=== PATIENT | male | born 1945 | race Caucasian/White ===

== ENCOUNTER 2017-08-20 08:48 | Inpatient (IN) | payer MEDICARE, OTHER ==
[2017-08-14 16:02] LABS: BASOPHILS # (AUTO) 0.1 X10'3 (0-0.2); BASOPHILS % (AUTO) 1.8 % (0-1); EOSINOPHILS # (AUTO) 0.1 X10'3 (0-0.9); EOSINOPHILS % (AUTO) 1.9 % (0-6); LYMPHOCYTES # (AUTO) 1.5 X10'3 (1.1-4.8); LYMPHOCYTES % (AUTO) 34.7 % (21-51); MEAN CORPUSCULAR HEMOGLOBIN 30.9 PG (27.0-31.0); MEAN CORPUSCULAR HGB CONC 34.6 % (33.0-36.5); MEAN CORPUSCULAR VOLUME 89.4 FL (78-98); MEAN PLATELET VOLUME 8.4 FL (7.4-10.4); MONOCYTES # (AUTO) 0.4 X10'3 (0-0.9); MONOCYTES % (AUTO) 9.7 % (2-12); NEUTROPHILS # (AUTO) 2.3 X10'3 (1.8-7.7); NEUTROPHILS % (AUTO) 51.9 % (42-75); PRE OP HEMATOCRIT 37.9 % (42.0-52.0); PRE OP HEMOGLOBIN 13.1 g/dL (14.0-17.9); PRE OP PLATELET COUNT 220 X10'3 (140-440); RED BLOOD COUNT 4.24 X10'6 (4.70-6.10); RED CELL DISTRIBUTION WIDTH 12.7 % (11.5-14.5)
[2017-08-14 16:14] LABS: ALBUMIN 3.5 G/DL (3.4-5.0); ALBUMIN/GLOBULIN RATIO 0.9 (1.1-1.5); ALKALINE PHOSPHATASE 119 IU/L (46-116); BLOOD UREA NITROGEN 16 MG/DL (7-18); BUN/CREATININE RATIO 14.4 (5.4-32.0); CHLORIDE 108 MMOL/L (99-107); CREATININE 1.11 MG/DL (0.60-1.10); PRE OP ALT 32 U/L (30-65); PRE OP ANION GAP 9 (8-16); PRE OP AST 23 U/L (10-37); PRE OP BILIRUB, TOTAL 0.5 MG/DL (0.0-1.0); PRE OP GLUCOSE 115 MG/DL (70-104); PRE OP SODIUM 144 MMOL/L (135-145); TOTAL CARBON DIOXIDE 26.8 MMOL/L (24-32); TOTAL PROTEIN 7.3 G/DL (6.4-8.2); eGFR 65 ML/MIN
[2017-08-20] VITALS (17 sets, daily range): BP systolic 118–143; BP diastolic 67–89
[~2017-08-20] VITALS: Ht 182.9 cm; Wt 109.5 kg
[~2017-08-20 08:48] MED LIST: ATOR10TA70 PO; DOCUMENT DATE & TIME OF BETA-BLOCKER PO ONE; METO50TA7 PO; OMEP20CA10 PO; PSYL1PAC11 PO; UBID100C16 PO; VERA240T PO; ceFAZolin inj. 2,000 MG in dextrose 5%-water 100 ML IV ONE; ringers solution, lacted 1,000 ML IV SCH; scopolamine 1.5mg patch.TD72 TD ONE
[2017-08-20] MEDS ORDERED: LIDOcaine 1% (10mg/ml) 2ml vial ONE (09:18)
[2017-08-20] MEDS ORDERED: famotidine 20mg tablet PO ONE (09:18)
[2017-08-20] MEDS: vancomycin inj 1,500 MG in normal saline 300ml IV soln IV ONE ×2 (09:37→11:53)
[2017-08-20] MEDS ORDERED: ketorolac trometh. 30mg/ml inj. ONE (12:38)
[2017-08-20] MEDS ORDERED: vancomycin 1,000mg inj ONE (12:38)
[2017-08-20] MEDS ORDERED: ROPIVAcaine 0.5% (5mg/ml) 30ml vial ONE ×2 (12:38→14:25)
[2017-08-20] MEDS ORDERED: tetracaine 1% (10mg/ml) pres. free inj. ONE (13:36)
[2017-08-20] MEDS ORDERED: morphine /PF 1mg/ml 10ml inj. ONE (13:43)
[2017-08-20] MEDS ORDERED: midazolam 2 mg/2 ml injection ONE ×2 (13:45→13:58)
[2017-08-20] MEDS ORDERED: fentaNYL/PF 50MCG/1 ML 2ML syringe ONE ×2 (13:45→14:47)
[2017-08-20] MEDS ORDERED: tranexamic acid inj. 1,000 MG in normal saline 100ml IV soln 100 ML IV ONE ×4 (13:50)
[2017-08-20] MEDS ORDERED: LIDOcaine 1%/PF (10mg/ml) 5ml vial ONE (14:02)
[2017-08-20] MEDS ORDERED: propofol inj 20 ML IV ONE ×3 (14:02→15:31)
[2017-08-20] MEDS ORDERED: cloNIDine hcl/PF 100mcg/ml inj ONE (14:30)
[2017-08-20] MEDS ORDERED: naloxone 2mg/2ml inj 2 MG in normal saline 500ml IV soln 500 ML IV PRN (15:21)
[2017-08-20] MEDS ORDERED: ringers solution, lacted 1,000 ML IV SCH (15:21)
[2017-08-20] MEDS ORDERED: diphenhydrAMINE 50 mg/ml inj IV PRN (15:25)
[2017-08-20] MEDS ORDERED: HYDROmorphone inj. 0.5 MG/0.5 ML DISP.SYRIN IV PRN ×4 (15:25→17:05)
[2017-08-20] MEDS ORDERED: ondansetron/PF 4mg/2ml inj IV PRN ×3 (15:25→17:05)
[2017-08-20] MEDS ORDERED: morphine 4 MG/ML inj SYRINge IV PRN (15:25)
[2017-08-20] MEDS ORDERED: glycopyrrolate 0.2mg/ml inj ONE (16:10)
[2017-08-20] MEDS ORDERED: dexamethasone 4mg/ml inj ONE (16:59)
[2017-08-20] MEDS ORDERED: acetaminophen 325mg tablet PO PRN (17:05)
[2017-08-20] MEDS ORDERED: bisacodyl 10mg suppository rectal RC PRN (17:05)
[2017-08-20] MEDS ORDERED: magnesium hydroxide 30ml (MOM) UD suspension PO PRN (17:05)
[2017-08-20] MEDS ORDERED: diphenhydrAMINE 25mg capsule PO PRN ×2 (17:05)
[2017-08-20] MEDS ORDERED: diphenhydrAMINE 50 mg/ml inj ONE (17:09)
[2017-08-20] MEDS: celeCOXIB 100mg capsule PO SCH (20:00)
[2017-08-20] MEDS ORDERED: vancomycin/NS 1 GM ADD-VANTAGE 250 ML IV SCH (20:00)
[2017-08-20] MEDS ORDERED: tranexamic acid inj. 1,110 MG in normal saline 100ml IV soln 100 ML IV ONE (20:00)
[2017-08-20] MEDS: gabapentin 300mg capsule PO SCH (20:38)
[2017-08-20] MEDS: sennosides 8.6mg tablet PO SCH (20:38)
[2017-08-20] MEDS: acetaminophen 325mg tablet PO SCH (20:38)
[2017-08-20] MEDS: metoprolol succinate 25mg (24-HOUR) SR. Tablet PO SCH (20:39)
[2017-08-20] MEDS: ketorolac tromethamine 15mg/ml inj. IV SCH (20:40)
[2017-08-20] MEDS: potassium cl 20mEq in 1/2 NS 1,000 ML IV SCH (20:40)
[2017-08-21] MEDS: ceFAZolin 1GM/D5W- ADD-VANTAGE 50 ML IV SCH ×2 (00:08→07:29)
[2017-08-21] MEDS: acetaminophen 325mg tablet PO SCH ×4 (01:59→21:04)
[2017-08-21] MEDS: ketorolac tromethamine 15mg/ml inj. IV SCH ×4 (01:59→21:05)
[2017-08-21 02:00] VITALS: BP 129/69
[2017-08-21] MEDS: oxyCODONE IR 5mg (immed. release) tablet PO PRN ×2 (04:59→19:48)
[2017-08-21 05:24] LABS: BASOPHILS % (AUTO) 0.1 % (0-1); EOSINOPHILS % (AUTO) 0.1 % (0-6); HEMATOCRIT 32.3 % (42.0-52.0); HEMOGLOBIN 11.1 g/dl (14.0-17.9); LYMPHOCYTES # (AUTO) 0.6 X10'3 (1.1-4.8); LYMPHOCYTES % (AUTO) 9.4 % (21-51); MEAN CORPUSCULAR HEMOGLOBIN 30.5 PG (27.0-31.0); MEAN CORPUSCULAR HGB CONC 34.2 % (33.0-36.5); MEAN CORPUSCULAR VOLUME 89.1 FL (78-98); MEAN PLATELET VOLUME 9.1 FL (7.4-10.4); MONOCYTES # (AUTO) 0.5 X10'3 (0-0.9); MONOCYTES % (AUTO) 7.7 % (2-12); NEUTROPHILS # (AUTO) 5.5 X10'3 (1.8-7.7); NEUTROPHILS % (AUTO) 82.7 % (42-75); PLATELET COUNT 169 X10'3 (140-440); RED BLOOD COUNT 3.63 X10'6 (4.70-6.10); RED CELL DISTRIBUTION WIDTH 11.8 % (11.5-14.5); WHITE BLOOD COUNT 6.6 X10'3 (4.5-11.0)
[2017-08-21] MEDS: potassium cl 20mEq in 1/2 NS 1,000 ML IV SCH ×2 (05:49→08:46)
[2017-08-21 06:20] LABS: ANION GAP 8 (8-16); CHLORIDE 108 MMOL/L (99-107); POTASSIUM 4.5 MMOL/L (3.5-5.1); SODIUM 140 MMOL/L (135-145); TOTAL CARBON DIOXIDE 24.5 MMOL/L (24-32)
[2017-08-21 06:37] VITALS: BP 103/59
[2017-08-21] MEDS: verapamil SR 120mg (sust. release) tab PO SCH (07:22)
[2017-08-21] MEDS: gabapentin 300mg capsule PO SCH ×3 (07:29→21:05)
[2017-08-21] MEDS: atorvastatin 10mg tablet PO SCH (07:29)
[2017-08-21] MEDS: celeCOXIB 100mg capsule PO SCH ×2 (07:30→20:00)
[2017-08-21] MEDS: pantoprazole 40mg Tablet.DR PO SCH (07:31)
[2017-08-21] MEDS: aspirin 325mg tablet PO SCH (07:42)
[2017-08-21] MEDS ORDERED: non-formulary drug (Ubidecarenone (Coq-10) 100 MG) PO SCH (08:00)
[2017-08-21 10:00] VITALS: BP 110/66
[2017-08-21] MEDS: Protein Shake (high protein) 240ml (8oz) cup PO SCH ×2 (13:00→21:03)
[2017-08-21 14:00] VITALS: BP 112/63
[2017-08-21 18:00] VITALS: BP 119/60
[2017-08-21] MEDS: sennosides 8.6mg tablet PO SCH ×2 (21:00→21:04)
[2017-08-21] MEDS: metoprolol succinate 25mg (24-HOUR) SR. Tablet PO SCH (21:04)
[2017-08-21 23:00] VITALS: BP 107/64
[2017-08-22] MEDS: acetaminophen 325mg tablet PO SCH ×2 (02:12→07:37)
[2017-08-22] MEDS: ketorolac tromethamine 15mg/ml inj. IV SCH (02:12)
[2017-08-22 05:00] VITALS: BP 108/60
[2017-08-22] MEDS: oxyCODONE IR 5mg (immed. release) tablet PO PRN ×2 (05:10→12:02)
[2017-08-22 05:33] LABS: BASOPHILS % (AUTO) 0.7 % (0-1); EOSINOPHILS # (AUTO) 0.3 X10'3 (0-0.9); EOSINOPHILS % (AUTO) 6.5 % (0-6); HEMATOCRIT 28.6 % (42.0-52.0); HEMOGLOBIN 9.9 g/dl (14.0-17.9); LYMPHOCYTES # (AUTO) 1.3 X10'3 (1.1-4.8); LYMPHOCYTES % (AUTO) 26.6 % (21-51); MEAN CORPUSCULAR HEMOGLOBIN 30.7 PG (27.0-31.0); MEAN CORPUSCULAR HGB CONC 34.4 % (33.0-36.5); MEAN CORPUSCULAR VOLUME 89.4 FL (78-98); MEAN PLATELET VOLUME 8.5 FL (7.4-10.4); MONOCYTES # (AUTO) 0.5 X10'3 (0-0.9); MONOCYTES % (AUTO) 11.2 % (2-12); NEUTROPHILS # (AUTO) 2.6 X10'3 (1.8-7.7); PLATELET COUNT 154 X10'3 (140-440); RED CELL DISTRIBUTION WIDTH 12.4 % (11.5-14.5); WHITE BLOOD COUNT 4.8 X10'3 (4.5-11.0)
[2017-08-22] MEDS: verapamil SR 120mg (sust. release) tab PO SCH (07:33)
[2017-08-22] MEDS: gabapentin 300mg capsule PO SCH (07:37)
[2017-08-22] MEDS: atorvastatin 10mg tablet PO SCH (07:37)
[2017-08-22] MEDS: aspirin 325mg tablet PO SCH (07:37)
[2017-08-22] MEDS: celeCOXIB 100mg capsule PO SCH (07:37)
[2017-08-22] MEDS: pantoprazole 40mg Tablet.DR PO SCH (07:37)
[2017-08-22] MEDS: Protein Shake (high protein) 240ml (8oz) cup PO SCH (08:35)
[2017-08-22] MEDS ORDERED: ASPI-1 PO (09:51)
[2017-08-22 10:00] VITALS: BP 139/54
[2017-08-22] MEDS ORDERED: acetaminophen 325mg tablet PO PRN (17:05)
== END 2017-08-22 12:05 | disposition home or self-care (01) | DRG 470 ==
LOC: PAS IN 08:48 → EDSTATUS 13:15 → ORTHO 4S 17:52
PROVIDERS: ADMIT Orthopaedic Surgery; ATTEND Orthopaedic Surgery
PROC: 3E0T3BZ Introduction of Anesthetic Agent into Peripheral Nerves and Plexi, Percutaneous Approach (ICD-10-PCS; 2017-08-20)
PROC: 8E0YXBZ Computer Assisted Procedure of Lower Extremity (ICD-10-PCS; 2017-08-20)
PROC: 8E0YXCZ Robotic Assisted Procedure of Lower Extremity (ICD-10-PCS; 2017-08-20)
PROC: 0SRC0J9 Replacement of Right Knee Joint with Synthetic Substitute, Cemented, Open Approach (ICD-10-PCS; principal; 2017-08-20 13:46)
DX: M17.11 Unilateral primary osteoarthritis, right knee (principal); D62 Acute posthemorrhagic anemia; I48.91 Unspecified atrial fibrillation; E78.5 Hyperlipidemia, unspecified; I10 Essential (primary) hypertension; K21.9 Gastro-esophageal reflux disease without esophagitis; Z96.652 Presence of left artificial knee joint; Z72.89 Other problems related to lifestyle; Z79.899 Other long term (current) drug therapy; Z87.891 Personal history of nicotine dependence
CPT/HCPCS: 36415; 80051; 80053; 85025; 85610; 85730; 87070; 97110; 97116; 97161; 97530; A6255; A6455; A7000; C1713; C1758; C1776; J0690; J0735; J1100; J1200; J1885; J2001; J2250; J2274; J2704; J2795; J3010; J3370; J3490; J7030; J7060; J7120

== ENCOUNTER 2019-02-26 10:35 | Day surgery (SDC) | payer MEDICARE, OTHER ==
[~2019-02-26] VITALS: Ht 180.3 cm; Wt 88.7 kg
[2019-02-26] VITALS (7 sets, daily range): BP systolic 122–146; BP diastolic 69–87
[~2019-02-26 10:35] MED LIST changes: +ASPI-1 PO; -DOCUMENT DATE & TIME OF BETA-BLOCKER PO ONE; -OMEP20CA10 PO; +OMEP20CA11 PO; -ceFAZolin inj. 2,000 MG in dextrose 5%-water 100 ML IV ONE; -ringers solution, lacted 1,000 ML IV SCH; -scopolamine 1.5mg patch.TD72 TD ONE
[2019-02-26] MEDS ORDERED: ATOR20TA PO (11:22)
[2019-02-26] MEDS ORDERED: METO-384 PO (11:22)
[2019-02-26] MEDS ORDERED: normal saline 1000ml 1,000 ML IV SCH ×2 (12:32→12:38)
[2019-02-26] MEDS ORDERED: LIDOcaine 1% (10mg/ml) 2ml vial SQ ONE (12:35)
[2019-02-26] MEDS ORDERED: fentaNYL/PF 50MCG/1 ML 2ML syringe IV PRN (12:35)
[2019-02-26] MEDS ORDERED: midazolam 2 mg/2 ml injection IV PRN (12:35)
[2019-02-26] MEDS ORDERED: LIDOcaine 1%/PF 5ML 10 MG/ML VIAL ONE (12:38)
[2019-02-26] MEDS ORDERED: fentaNYL/PF 50MCG/1 ML 2ML syringe ONE ×2 (12:39→12:59)
[2019-02-26] MEDS ORDERED: iohexol 300 MG/1 ML 50ml polymer ONE (12:39)
[2019-02-26] MEDS ORDERED: midazolam 2 mg/2 ml injection ONE ×2 (12:39→12:59)
== END 2019-02-26 14:55 | disposition home or self-care (01) ==
LOC: SSTAY O 10:35
PROVIDERS: ATTEND Radiology Diagnostic Radiology
DX: Z43.1 Encounter for attention to gastrostomy (principal); Z85.01 Personal history of malignant neoplasm of esophagus; Z79.899 Other long term (current) drug therapy; I48.91 Unspecified atrial fibrillation; E78.5 Hyperlipidemia, unspecified; K21.9 Gastro-esophageal reflux disease without esophagitis; Z98.890 Other specified postprocedural states; Z98.49 Cataract extraction status, unspecified eye; Z79.82 Long term (current) use of aspirin
CPT/HCPCS: 49451; 99152; 99153; J2250; J3010; J7030; Q9967; C1729; C1769